=== PATIENT | male | born 1955 | race Caucasian/White ===

== ENCOUNTER 2019-06-16 12:11 | Emergency (ER) | payer BC ==
[~2019-06-16] VITALS: Ht 180.3 cm; Wt 119.0 kg
[2019-06-16] MEDS ORDERED: ASPIRIN CHEWABLE 81 MG TABLET. PO ONE (12:30)
[2019-06-16] MEDS ORDERED: MECLIZINE HCL 12.5 MG TABLET. PO ONE (12:30)
--- NOTE | 2019-06-16 12:34 | EKG ---
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
--- NOTE | 2019-06-16 12:40 | PHYS DOC ---
Past Medical History Past Medical History: High Cholesterol, Hypothyroid Additional Past Surgical Histo: carpal tunnel, eye surgery Smoking: Cigarettes (The patient is a nonsmoker.) Alcohol Use: None Adult General Chief Complaint Chief Complaint: CHEST PAIN HPI HPI patient is a 63-year-old male who presents to the emergency department for evaluation. He states he was standing in line for lunch at a work meeting, when he began expressing some dizziness, described as a sense of rotation. He states he sat down and still felt dizzy, and EMS was called. He states he had about 15 minutes of discomfort in his upper chest, locally, near his clavicle, and the midline, but that went away. He did not have any other chest pressure, he did not have any shortness of breath, diaphoresis, but did have some nausea. He did not have any exertional chest pain. He has no history of hypertension, family history of coronary artery disease, or no personal history of coronary disease. He states his resting heart rate is in the 40s normally. He denies any faintness or lightheadedness. He has not had any tinnitus or hearing changes. There are no alleviating or exacerbating factors to his symptoms. He denies a headache, but states he feels that if he gets up he would feel dizzy, as if he has some sinus pressure, something he gets from time to time. Review of Systems Review of Systems Constitutional: Denies fever or chills [] Eyes: Denies change in visual acuity, redness, or eye pain [] HENT: Denies nasal congestion or sore throat [] Respiratory: Denies cough or shortness of breath [] Cardiovascular: No additional information not addressed in HPI [] GI: Denies abdominal pain, nausea, vomiting, bloody stools or diarrhea [] : Denies dysuria or hematuria [] Musculoskeletal: Denies back pain or joint pain [] Integument: Denies rash or skin lesions [] Neurologic: Denies headache, focal weakness or sensory changes [] Endocrine: Denies polyuria or polydipsia [] All other systems were reviewed and found to be within normal limits, except as documented in this note. Current Medications Current Medications Current Medications Medications (Trade) Dose Ordered Sig/Celso Start Time Stop Time Status Last Admin Dose Admin Aspirin (Children'S Aspirin) 324 mg 1X ONCE 06/16/19 12:30 06/16/19 12:49 DC 06/16/19 12:52 324 MG Meclizine HCl (Antivert) 50 mg 1X ONCE 06/16/19 12:30 06/16/19 12:49 DC 06/16/19 12:52 50 MG Allergies Allergies Allergies Uncoded Allergies Type Severity Reaction Last Updated Verified organic dust Adverse Reaction Mild itching 06/16/19 Physical Exam Physical Exam PHYSICAL EXAM: CONSTITUTIONAL: Well developed, well nourished HEAD: normocephalic, atraumatic EENT: PERRL, EOMI. Conjunctivae normal color, sclerae non-icteric; moist mucous membranes. There is no definite nystagmus. Disconjugate gaze is present. NECK: Supple, non-tender; no meningismus. LUNGS: Lungs CTA, breathing even and unlabored. Normal air movement. HEART: Regular rate and rhythm, no murmur CHEST: No deformity; non-tender ABDOMEN: The abdomen is soft, and non-tender, no masses or bruits. EXTREM: Normal ROM; no deformity, no calf tenderness. Normal pulses palpable in all extremities. There is no pedal edema. SKIN: No rash; no diaphoresis NEURO: Alert; normal speech and cognition; CN's grossly intact; strength grossly intact without focal deficit. Lgoohk-apdr-krltkr and heel sandy testing is normal. Visual larry are intact by confrontation. NIH stroke scale score is 0. BACK: No CVA TTP. Current Patient Data Vital Signs Vital Signs Date Time Temp Pulse Resp B/P (MAP) Pulse Ox O2 Delivery O2 Flow Rate FiO2 06/16/19 12:14 98.0 54 18 167/77 (107) 99 Room Air 98.0 Lab Values Laboratory Tests Test 06/16/19 12:35 White Blood Count 6.5 x10^3/uL (4.0-11.0) Red Blood Count 4.73 x10^6/uL (4.30-5.70) Hemoglobin 15.2 g/dL (13.0-17.5) Hematocrit 44.1 % (39.0-53.0) Mean Corpuscular Volume 93 fL (79-100) Mean Corpuscular Hemoglobin 32 pg (25-35) Mean Corpuscular Hemoglobin Concent 34 g/dL (31-37) Red Cell Distribution Width 13.3 % (11.5-14.5) Platelet Count 155 x10^3/uL (140-400) Neutrophils (%) (Auto) 45 % (31-73) Lymphocytes (%) (Auto) 40 % (24-48) Monocytes (%) (Auto) 10 % (0-9) H Eosinophils (%) (Auto) 5 % (0-3) H Basophils (%) (Auto) 1 % (0-3) Neutrophils # (Auto) 2.9 x10^3/uL (1.8-7.7) Lymphocytes # (Auto) 2.6 x10^3/uL (1.0-4.8) Monocytes # (Auto) 0.6 x10^3/uL (0.0-1.1) Eosinophils # (Auto) 0.3 x10^3/uL (0.0-0.7) Basophils # (Auto) 0.1 x10^3/uL (0.0-0.2) Sodium Level 143 mmol/L (136-145) Potassium Level 4.5 mmol/L (3.5-5.1) Chloride Level 106 mmol/L (98-107) Carbon Dioxide Level 32 mmol/L (21-32) Anion Gap 5 (6-14) L Blood Urea Nitrogen 20 mg/dL (8-26) Creatinine 1.3 mg/dL (0.7-1.3) Estimated GFR (Cockcroft-Gault) 55.9 BUN/Creatinine Ratio 15 (6-20) Glucose Level 134 mg/dL (70-99) H Calcium Level 9.0 mg/dL (8.5-10.1) Total Bilirubin 0.5 mg/dL (0.2-1.0) Aspartate Amino Transferase (AST) 23 U/L (15-37) Alanine Aminotransferase (ALT) 34 U/L (16-63) Alkaline Phosphatase 76 U/L (46-116) Troponin I Quantitative < 0.017 ng/mL (0.000-0.055) EU-Bsz-B-Type Natriuretic Peptide 85 pg/mL (0-124) Total Protein 7.5 g/dL (6.4-8.2) Albumin 4.0 g/dL (3.4-5.0) Albumin/Globulin Ratio 1.1 (1.0-1.7) Laboratory Tests 06/16/19 12:35 Laboratory Tests 06/16/19 12:35 EKG EKG []Sinus bradycardia at a rate of 48 bpm, left axis deviation, normal intervals. There are no acute ischemic ST/T changes. Radiology/Procedures Radiology/Procedures PROCEDURE: PORTABLE CHEST 1V PORTABLE CHEST 1V History: Chest pain Comparison: None. Findings: No consolidation or pleural effusion. Normal heart size. No pneumothorax. Impression: 1. No acute cardiopulmonary process.[] Course & Med Decision Making Course & Med Decision Making Pertinent Labs and Imaging studies reviewed. (See chart for details) []1:20 PM: The patient's condition remained stable. He is feeling better, his dizziness has resolved, he has had no recurrence her ongoing chest pain or shortness of breath. His HEART score is a 2. I had an extensive discussion with the patient about the limitations of ER cardiac evaluation in definitively ruling out acute coronary syndrome. We discussed limitation of the ER evaluation and a singe ED troponin in r/o AMI, and the risks involved in missed diagnosis of acute coronary syndrome including or permanent debility. I discussed the possibility of overnight observation for further formal cardiac evaluation to rule out acute coronary syndrome. After expressing understanding of the limitations of ER cardiac evaluation, as well as the risks of missed diagnosis, the patient declined further cardiac evaluation at this time. The patient was mentally competent, and given opportunity to ask questions about the diagnosis and recommended plan of care. I stressed the importance of outpatient follow-up, and returning to the [facility] department for new or worsening symptoms, or if the patient is agreeable to undergo further cardiac evaluation. Dragon Disclaimer Dragon Disclaimer This electronic medical record was generated, in whole or in part, using a voice recognition dictation system. Departure Departure Impression: Primary Impression: Dizziness Additional Impression: Atypical chest pain Disposition: HOME, SELF-CARE Condition: STABLE Referrals: SAPPHIRE LIM MD Patient Instructions: Chest Pain (Nonspecific), Dizziness, Vertigo Additional Instructions: Begin taking 81 mg of aspirin daily until instructed otherwise by physician. Follow-up with your primary care provider in the next 2-3 days, to schedule further outpatient testing. 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 Return to medical care for any new or worsening symptoms, development of in creasing dizziness, recurrent chest pain, nausea or vomiting, shortness of breath, or any other new or concerning symptoms. Problem Qualifiers FLETCHER VICK MD Jun 16, 2019 12:40
[2019-06-16 12:53] LABS: BASO # 0.1 x10^3/uL (0.0-0.2); BASO % 1 % (0-3); EOS # 0.3 x10^3/uL (0.0-0.7); EOS % 5 % (0-3); HEMATOCRIT 44.1 % (39.0-53.0); HEMOGLOBIN 15.2 g/dL (13.0-17.5); LYMPH # 2.6 x10^3/uL (1.0-4.8); LYMPH % 40 % (24-48); MEAN CORPUSCULAR HEMOGLOBIN 32 pg (25-35); MEAN CORPUSCULAR HGB CONC 34 g/dL (31-37); MEAN CORPUSCULAR VOLUME 93 fL (79-100); MONO # 0.6 x10^3/uL (0.0-1.1); MONO % 10 % (0-9); NEUT # 2.9 x10^3/uL (1.8-7.7); NEUT % 45 % (31-73); PLATELET COUNT 155 x10^3/uL (140-400); RED BLOOD COUNT 4.73 x10^6/uL (4.30-5.70); RED CELL DISTRIBUTION WIDTH 13.3 % (11.5-14.5); WHITE BLOOD COUNT 6.5 x10^3/uL (4.0-11.0)
[2019-06-16 12:58] LABS: CREATININE 1.3 mg/dL (0.7-1.3); GFR 55.9; POTASSIUM 4.5 mmol/L (3.5-5.1)
--- NOTE | 2019-06-16 13:02 | RAD ---
PORTABLE CHEST 1V History: Chest pain Comparison: None. Findings: No consolidation or pleural effusion. Normal heart size. No pneumothorax. Impression: 1. No acute cardiopulmonary process. Electronically signed by: Nikolay Leone DO (06/16/2019 12:59 PM) [id number]
[2019-06-16 13:03] LABS: ALBUMIN/GLOBULIN RATIO 1.1 (1.0-1.7); TOTAL BILIRUBIN 0.5 mg/dL (0.2-1.0); TOTAL PROTEIN 7.5 g/dL (6.4-8.2)
[2019-06-16 13:24] VITALS: BP 164/77
== END 2019-06-16 13:32 | disposition home or self-care (01) ==
LOC: ER 12:11
DX: R07.89 Other chest pain (principal); R42 Dizziness and giddiness; E78.00 Pure hypercholesterolemia, unspecified; E03.9 Hypothyroidism, unspecified; F17.210 Nicotine dependence, cigarettes, uncomplicated; Z98.890 Other specified postprocedural states; Z79.82 Long term (current) use of aspirin
CPT/HCPCS: 36415; 71045; 80053; 83880; 84484; 85025; 93005; 99285; J8597